=== PATIENT | male | born 1930 | race Caucasian/White ===

== ENCOUNTER 2018-10-29 16:06 | Emergency (ER) | payer OTHER ==
[~2018-10-29] VITALS: Ht 172.7 cm; Wt 86.2 kg
[~2018-10-29 16:06] MED LIST: ASCO500 PO; ASPI81EC; BAYER CHEWABLE81 MG PO; FURO40 PO; HYDCHL25 PO; HYDR1TAB94 PO; LOSARTAN POTASS25 MG PO; Norco 5-325 Ta1 EACH PO; OMEGA-3 KRILL1 EACH PO; POTCHL10ER PO; TAKES NO MEDS
[2018-10-29 16:26] LABS: Source, Urine Clean Catch
[2018-10-29 16:36] LABS: BASOPHILS ABSOLUTE AUTO 0.03 K/mm3 (0.00-0.23); BASOPHILS PERCENT AUTO 0 % (0-2); EOSINOPHILS ABSOLUTE AUTO 0.18 K/mm3 (0.00-0.68); EOSINOPHILS PERCENT AUTO 3 % (0-6); Hematocrit 36.8 % (37.0-53.0); Hemoglobin 11.9 g/dL (13.5-17.5); IMMATURE GRAN ABSOLUTE AUTO 0.02 K/mm3 (0.00-0.10); IMMATURE GRAN PERCENT AUTO 0 % (0-1); LYMPHOCYTES PERCENT AUTO 26 % (21-46); MONOCYTES ABSOLUTE AUTO 0.65 K/mm3 (0.16-1.47); MONOCYTES PERCENT AUTO 9 % (4-13); Mean Corpuscular HGB Conc 32.3 g/dL (31.5-36.5); Mean Corpuscular Volume 105 fL (80-100); NEUTROPHILS ABSOLUTE AUTO 4.24 K/mm3 (1.96-9.15); NEUTROPHILS PERCENT AUTO 61 % (41-73); Platelet Count 200 K/mm3 (150-400); RDW Coefficient Variation 12.2 % (11.7-14.2); White Blood Cell Count 6.92 K/mm3 (4.00-11.30)
[2018-10-29 16:58] LABS: Bilirubin, Urine Neg (Neg); Blood, Urine 5+ (Neg); Glucose Qualitative, Urine Neg (Neg); Ketones, Urine 1+ (Neg); Leukocyte Esterase, Urine 2+ (Neg); Nitrite, Urine Pos (Neg); Protein, Urine 3+ (Neg); Urobilinogen, Urine NORM (Normal)
[2018-10-29 17:16] LABS: Albumin, Blood 3.7 g/dL (3.4-5.0); Albumin/Globulin Ratio 0.9 (0.8-1.8); Bilirubin, Total 0.3 mg/dL (0.1-1.0); Bun/Creatinine Ratio 20.3 (12.0-20.0); Calcium, Blood 8.9 mg/dL (8.5-10.1); Creatinine, Blood 1.77 mg/dL (0.60-1.20); Globulin, Blood 3.9 g/dL (2.2-4.0); Potassium, Blood 3.9 mmol/L (3.5-5.5); Total Protein, Blood 7.6 g/dL (6.4-8.2)
[2018-10-29 17:19] LABS: Appearance, Urine Bloody (Clear); Color, Urine Red (P-Yellow)
[2018-10-29 17:21] LABS: Squamous Epithelial Cells Not Seen /hpf (Few)
[2018-10-29 17:23] LABS: Bacteria Few /hpf; Red Blood Cells, Urine TNTC /hpf (0-2); White Blood Cells, Urine 0-2 /hpf (0-5)
[2018-10-29] MEDS ORDERED: Bactrim Ds Tab1 EACH PO (18:39)
== END 2018-10-29 19:22 | disposition home or self-care (01) ==
LOC: ER 16:06
PROVIDERS: Physician Assistant
DX: N39.0 Urinary tract infection, site not specified (principal); Z88.0 Allergy status to penicillin; Z88.8 Allergy status to other drugs, medicaments and biological substances; Z79.899 Other long term (current) drug therapy; Z79.82 Long term (current) use of aspirin; I10 Essential (primary) hypertension; Z87.891 Personal history of nicotine dependence
CPT/HCPCS: 74177; 80053; 81001; 85025; 87086; 96365; 99284-25; J0696; Q9967

== ENCOUNTER 2019-04-10 18:16 | Observation (INO) | payer OTHER ==
[~2019-04-10] VITALS: Ht 165.1 cm; Wt 87.7 kg
[~2019-04-10 18:16] MED LIST changes: +Bactrim Ds Tab1 EACH PO; +LOSA25 PO; -LOSARTAN POTASS25 MG PO
[2019-04-10] MEDS ORDERED: Roxicodone5 MG PO (20:15)
--- NOTE | 2019-04-11 19:18 | NUR ---
PT. WORKED WITH PT TODAY AND TOLERATED WELL. TOOK HIM DOWN TO EXERCISE ROOM TO TRY HIM ON STAIRS. REPORTED HE DID WELL. PT. GIVEN TYLENOL FOR PAIN PER REQUEST. A&O PLEASANT AND COOPERATIVE, USING CALL LIGHT APPROPRIATELY.
--- NOTE | 2019-04-12 04:33 | NUR ---
SHIFT SUMMARY PT HAS SLEPT WELL T/O SHIFT. PT HAD NO ISSUES NOTED. PT CURRENTLY SLEEPING AND BREATHING EASY. CALL LIGHT IN REACH.
--- NOTE | 2019-04-12 08:05 | NUR ---
CLEANED PT'S SKIN TEAR ON RIGHT ELBOW AFTER HIS SHOWER AND PLACED A TEGADERM ON WOUND.
[2019-04-12] MEDS ORDERED: Norco 5-325 Ta1 EACH PO (14:21)
[2019-04-12] MEDS ORDERED: TRAM50 PO (14:24)
[2019-04-12] MEDS ORDERED: Acetaminophen325 M1 PO (14:25)
[2019-04-12] MEDS ORDERED: DOCU100 PO (14:26)
--- NOTE | 2019-04-12 16:00 | NUR ---
PT. DISCHARGED HOME WITH SPOUSE. HH TO FOLLOW HIM AN OUTPATIENT AND THEY WILL CALL HIM TOMORROW, PT. AWARE.
== END 2019-04-12 15:59 | disposition home or self-care (01) ==
LOC: ER 18:16 → MEDS 18:17
PROVIDERS: ADMIT Hospitalist
DX: S32.591A Other specified fracture of right pubis, initial encounter for closed fracture (principal); I12.9 Hypertensive chronic kidney disease with stage 1 through stage 4 chronic kidney disease, or unspecified chronic kidney disease; N18.3 Chronic kidney disease, stage 3 (moderate); E78.5 Hyperlipidemia, unspecified; Z87.891 Personal history of nicotine dependence; Z88.8 Allergy status to other drugs, medicaments and biological substances; Z88.0 Allergy status to penicillin; Z79.899 Other long term (current) drug therapy; Z79.82 Long term (current) use of aspirin; W10.9XXA Fall (on) (from) unspecified stairs and steps, initial encounter
CPT/HCPCS: 72170; 97116; 97161; 99285-25; A9270; A9270-GY; G0378

== ENCOUNTER → 2020-12-15 | Outpatient (CLI) | payer OTHER ==
[~2020-12-15] MED LIST changes: +Acetaminophen325 M1 PO; +DOCU100 PO; +Roxicodone5 MG PO; +TRAM50 PO
== END | disposition home or self-care (01) ==
LOC: LAB SHORT 15:00 → LAB 15:00
DX: R31.0 Gross hematuria (principal)
CPT/HCPCS: 87086

== ENCOUNTER 2022-01-14 16:49 | Emergency (ER) | payer OTHER ==
[~2022-01-14] VITALS: Ht 172.7 cm; Wt 89.8 kg
[2022-01-14 17:08] LABS: BASOPHILS ABSOLUTE AUTO 0.03 K/mm3 (0.00-0.23); BASOPHILS PERCENT AUTO 0 % (0-2); EOSINOPHILS ABSOLUTE AUTO 0.04 K/mm3 (0.00-0.68); EOSINOPHILS PERCENT AUTO 0 % (0-6); Hemoglobin 11.3 g/dL (13.5-17.5); IMMATURE GRAN ABSOLUTE AUTO 0.05 K/mm3 (0.00-0.10); IMMATURE GRAN PERCENT AUTO 1 % (0-1); LYMPHOCYTES ABSOLUTE AUTO 1.12 K/mm3 (0.84-5.20); LYMPHOCYTES PERCENT AUTO 11 % (21-46); MONOCYTES ABSOLUTE AUTO 0.59 K/mm3 (0.16-1.47); MONOCYTES PERCENT AUTO 6 % (4-13); Mean Corpuscular HGB 34.2 pg (26.0-34.0); Mean Corpuscular HGB Conc 33.2 g/dL (31.5-36.5); Mean Corpuscular Volume 103 fL (80-100); Mean Platelet Volume 10.6 fL (9.1-12.4); NEUTROPHILS PERCENT AUTO 82 % (41-73); Platelet Count 167 K/mm3 (150-400); RDW Coefficient Variation 12.1 % (11.7-14.2); RDW Standard Deviation 46.2 fL (35.1-46.3); White Blood Cell Count 10.33 K/mm3 (4.00-11.30)
[2022-01-14 17:34] LABS: Albumin, Blood 3.1 g/dL (3.4-5.0); Albumin/Globulin Ratio 0.7 (0.8-1.8); Bilirubin, Total 0.4 mg/dL (0.1-1.0); Bun/Creatinine Ratio 15.9 (12.0-20.0); Creatinine, Blood 2.77 mg/dL (0.60-1.20); Globulin, Blood 4.4 g/dL (2.2-4.0); Potassium, Blood 4.3 mmol/L (3.5-5.5); Total Protein, Blood 7.5 g/dL (6.4-8.2)
[2022-01-14 17:41] LABS: Source, Urine Clean Catch
[2022-01-14 17:45] LABS: Appearance, Urine Cloudy (Clear); Bilirubin, Urine Neg (Neg); Blood, Urine 5+ (Neg); Color, Urine Red (P-Yellow); Glucose Qualitative, Urine Neg (Neg); Ketones, Urine 1+ (Neg); Leukocyte Esterase, Urine 2+ (Neg); Nitrite, Urine Neg (Neg); Protein, Urine 4+ (Neg); Specific Gravity, Urine 1.015 (1.003-1.022); Urobilinogen, Urine NORM (Normal)
[2022-01-14 18:02] LABS: Red Blood Cells, Urine TNTC /hpf (0-2)
[2022-01-14 18:05] LABS: Bacteria Mod /hpf; Squamous Epithelial Cells Not Seen /hpf (Few)
[2022-01-14] MEDS ORDERED: CEFD300 PO (19:33)
== END 2022-01-14 20:18 | disposition home or self-care (01) ==
LOC: ER 16:49
PROVIDERS: Student in an Organized Health Care Education/Training Program
DX: N13.30 Unspecified hydronephrosis (principal); Z88.0 Allergy status to penicillin; Z79.899 Other long term (current) drug therapy; Z79.82 Long term (current) use of aspirin; I10 Essential (primary) hypertension; E78.5 Hyperlipidemia, unspecified; Z87.891 Personal history of nicotine dependence
CPT/HCPCS: 36415; 74176; 80053; 81001; 85025; 87086; 96374; 99284-25; J0696; J7030

== ENCOUNTER 2022-04-18 13:03 | Emergency (ER) | payer OTHER ==
[~2022-04-18] VITALS: Ht 172.7 cm; Wt 88.0 kg
[~2022-04-18 13:03] MED LIST changes: +CEFD300 PO
[2022-04-18 13:32] LABS: BASOPHILS ABSOLUTE AUTO 0.05 K/mm3 (0.00-0.23); BASOPHILS PERCENT AUTO 1 % (0-2); EOSINOPHILS ABSOLUTE AUTO 0.21 K/mm3 (0.00-0.68); EOSINOPHILS PERCENT AUTO 3 % (0-6); Hemoglobin 10.9 g/dL (13.5-17.5); IMMATURE GRAN ABSOLUTE AUTO 0.02 K/mm3 (0.00-0.10); IMMATURE GRAN PERCENT AUTO 0 % (0-1); LYMPHOCYTES ABSOLUTE AUTO 1.97 K/mm3 (0.84-5.20); LYMPHOCYTES PERCENT AUTO 29 % (21-46); MONOCYTES ABSOLUTE AUTO 0.55 K/mm3 (0.16-1.47); MONOCYTES PERCENT AUTO 8 % (4-13); Mean Corpuscular HGB 34.5 pg (26.0-34.0); Mean Corpuscular Volume 104 fL (80-100); Mean Platelet Volume 9.8 fL (9.1-12.4); NEUTROPHILS ABSOLUTE AUTO 3.98 K/mm3 (1.96-9.15); NEUTROPHILS PERCENT AUTO 59 % (41-73); Platelet Count 192 K/mm3 (150-400); RDW Coefficient Variation 12.1 % (11.7-14.2); RDW Standard Deviation 47.2 fL (35.1-46.3); Red Blood Cell Count 3.16 M/mm3 (4.30-5.90); White Blood Cell Count 6.78 K/mm3 (4.00-11.30)
[2022-04-18 13:33] LABS: Source, Urine Clean Catch
[2022-04-18 13:48] LABS: Appearance, Urine Hazy (Clear); Bilirubin, Urine Neg (Neg); Blood, Urine 5+ (Neg); Color, Urine Amber (P-Yellow); Glucose Qualitative, Urine Neg (Neg); Ketones, Urine Neg (Neg); Leukocyte Esterase, Urine 1+ (Neg); Nitrite, Urine Neg (Neg); Protein, Urine 2+ (Neg); Urobilinogen, Urine NORM (Normal); pH, Urine 6.5 (5.0-8.0)
[2022-04-18 14:05] LABS: Albumin, Blood 3.5 g/dL (3.4-5.0); Albumin/Globulin Ratio 0.9 (0.8-1.8); Bilirubin, Total 0.3 mg/dL (0.1-1.0); Bun/Creatinine Ratio 21.3 (12.0-20.0); Calcium, Blood 9.2 mg/dL (8.5-10.1); Creatinine, Blood 1.74 mg/dL (0.60-1.20); Globulin, Blood 3.8 g/dL (2.2-4.0); Potassium, Blood 4.2 mmol/L (3.5-5.5); Total Protein, Blood 7.3 g/dL (6.4-8.2)
[2022-04-18 14:23] LABS: Red Blood Cells, Urine 50-100 /hpf (0-2)
[2022-04-18 14:24] LABS: Bacteria Rare /hpf; Squamous Epithelial Cells Rare /hpf (Few)
[2022-04-18] MEDS ORDERED: FERSU300 PO (19:24)
[2022-04-18] MEDS ORDERED: AMLO5 PO (19:24)
[2022-04-18] MEDS ORDERED: POTA10T PO (19:25)
[2022-04-18] MEDS ORDERED: Norco 5-325 Ta1 EACH PO (21:38)
== END 2022-04-18 22:15 | disposition home or self-care (01) ==
LOC: ER 13:03
PROVIDERS: Emergency Medicine
DX: M54.31 Sciatica, right side (principal); N13.5 Crossing vessel and stricture of ureter without hydronephrosis; I12.9 Hypertensive chronic kidney disease with stage 1 through stage 4 chronic kidney disease, or unspecified chronic kidney disease; N18.9 Chronic kidney disease, unspecified; Z88.0 Allergy status to penicillin; Z88.8 Allergy status to other drugs, medicaments and biological substances; Z79.899 Other long term (current) drug therapy; Z79.82 Long term (current) use of aspirin; Z87.891 Personal history of nicotine dependence
CPT/HCPCS: 36415; 72131; 72192; 80053; 81001; 85025; A9270

== ENCOUNTER 2022-09-04 21:28 | Observation (INO) | payer OTHER ==
[~2022-09-04] VITALS: Ht 172.7 cm; Wt 85.2 kg
[~2022-09-04 21:28] MED LIST changes: +AMLO5 PO; +FERSU300 PO; +POTA10T PO
[2022-09-04 22:09] LABS: BASOPHILS ABSOLUTE AUTO 0.04 K/mm3 (0.00-0.23); BASOPHILS PERCENT AUTO 1 % (0-2); EOSINOPHILS ABSOLUTE AUTO 0.09 K/mm3 (0.00-0.68); EOSINOPHILS PERCENT AUTO 1 % (0-6); Hematocrit 33.5 % (37.0-53.0); IMMATURE GRAN ABSOLUTE AUTO 0.01 K/mm3 (0.00-0.10); IMMATURE GRAN PERCENT AUTO 0 % (0-1); LYMPHOCYTES ABSOLUTE AUTO 1.11 K/mm3 (0.84-5.20); LYMPHOCYTES PERCENT AUTO 17 % (21-46); MONOCYTES ABSOLUTE AUTO 0.68 K/mm3 (0.16-1.47); MONOCYTES PERCENT AUTO 11 % (4-13); Mean Corpuscular HGB Conc 32.8 g/dL (31.5-36.5); Mean Corpuscular Volume 101 fL (80-100); Mean Platelet Volume 10.2 fL (9.1-12.4); NEUTROPHILS ABSOLUTE AUTO 4.47 K/mm3 (1.96-9.15); NEUTROPHILS PERCENT AUTO 70 % (41-73); Platelet Count 180 K/mm3 (150-400); RDW Coefficient Variation 13.2 % (11.7-14.2); RDW Standard Deviation 48.3 fL (35.1-46.3); Red Blood Cell Count 3.33 M/mm3 (4.30-5.90)
[2022-09-04 22:42] LABS: Albumin, Blood 3.5 g/dL (3.4-5.0); Albumin/Globulin Ratio 0.9 (0.8-1.8); Bilirubin, Total 0.5 mg/dL (0.1-1.0); Bun/Creatinine Ratio 20.4 (12.0-20.0); Calcium, Blood 8.8 mg/dL (8.5-10.1); Creatinine, Blood 2.25 mg/dL (0.60-1.20); Globulin, Blood 3.9 g/dL (2.2-4.0); Potassium, Blood 3.9 mmol/L (3.5-5.5); Total Protein, Blood 7.4 g/dL (6.4-8.2)
[2022-09-05 06:26] LABS: Hemoglobin 9.2 g/dL (13.5-17.5)
[2022-09-05 06:32] LABS: Bun/Creatinine Ratio 21.9 (12.0-20.0); Calcium, Blood 8.2 mg/dL (8.5-10.1); Creatinine, Blood 1.92 mg/dL (0.60-1.20); Potassium, Blood 3.7 mmol/L (3.5-5.5)
[2022-09-05 07:39] LABS: Source, Urine Foley catheter
[2022-09-05 07:47] LABS: Appearance, Urine Hazy (Clear); Bilirubin, Urine Neg (Neg); Blood, Urine 5+ (Neg); Color, Urine Red (P-Yellow); Glucose Qualitative, Urine Neg (Neg); Ketones, Urine Neg (Neg); Leukocyte Esterase, Urine Neg (Neg); Nitrite, Urine Neg (Neg); Protein, Urine 2+ (Neg); Specific Gravity, Urine 1.015 (1.003-1.022); Urobilinogen, Urine NORM (Normal)
[2022-09-05 08:17] LABS: Bacteria Not Seen /hpf; Red Blood Cells, Urine TNTC /hpf (0-2); Squamous Epithelial Cells Not Seen /hpf (Few); White Blood Cells, Urine Not Seen /hpf (0-5)
--- NOTE | 2022-09-05 16:34 | NUR ---
ADMISSION SUMMARY: RECEIVED REPORT FROM ER NURSE GRECIA AROUND 1208, REGARDING PATIENT ADMITTED TO MEDICAL UNIT WITH DIAGNOSIS OF HEMATURIA. PATIENT ARRIVED TO ROOM AT AROUND 1330. PATIENT WAS TRANSFERRED TO BED WITH SBA. PATIENT A&OX4. ORIENT TO ROOM AND CALL SYSTEM. PLEASANT AND COOPERATIVE WITH CARE USES CALL LIGHT APPROPRIATELY AND ABLE TO ADVOCATE FOR HIS NEEDS. DENIES CP/CHEST DISCOMFORT. LUNGS CLEAR T/O TO AUSCULTATION. WEARS HEARING AID ON BOTH EARS. DENIES SUPRAPUBIC PAIN/DISCOMFORT. THREE WAY RAMIREZ WAS PLACED IN ED FOR RETENTION AND BLOOD IN URINE. BLADDER IRREGATION WAS STOP AT AROUND 1540 PER ORDER. RAMIREZ PATENT DRAINING TO GRAVITY WITH RED URINE BUT NO CLOTS. IV TO R FOREARM SALINE LOCKED. AT BEDSIDE VISITING THIS PM. ALL QUESTIONS OR CONCERN WERE ANSWERED DURING THIS VISIT. SPOUSE DORETHA STATED UNDERSTANDING AND NO FURTHER QUESTIONS AT THIS TIME. VITAL SIGNS REVIEWED. CALL LIGHT AND ICE WATER WITHIN REACH.
--- NOTE | 2022-09-06 05:16 | NUR ---
ANESTHESIA DIRECTOR SUMMARY PT A/OX4; PLEASANT AND COOPERATIVE. PT WITH HEMATURIA AND INDWELLING CATHETER W/IRRIGATION. IRRIGATION CLAMPED W/ORDER TO REMOVE CATH IF NO CLOTS AND URINE REMAINS PINK. REQUESTED CHARGE (TEE RIVERA) T/REVIEW ORDER AND ASSESS PT F/REMOVAL. CHARGE GAVE OK TO REMOVE. URINE SEROSENGUENOUS W/NO CLOTS WHEN REMOVED. AFTER REMOVAL PT HAD SMALL VOID WITH BRIEF DISCOMFORT AND THEN NO PAIN. PT OBSERVED SMALL CLOT IN URINE. ADVISED PT TO LET NURSE KNOW WHEN HE VOIDS T/OBSERVE FOR CLOTS; ALSO REPORT ANY PAIN. PT SHOWERED EARLY THIS AM. ABLE TO MAKE NEEDS KNOW. CALL LIGHT IN REACH.
[2022-09-06 06:05] LABS: BASOPHILS ABSOLUTE AUTO 0.02 K/mm3 (0.00-0.23); BASOPHILS PERCENT AUTO 0 % (0-2); EOSINOPHILS ABSOLUTE AUTO 0.28 K/mm3 (0.00-0.68); EOSINOPHILS PERCENT AUTO 4 % (0-6); Hemoglobin 10.9 g/dL (13.5-17.5); IMMATURE GRAN ABSOLUTE AUTO 0.02 K/mm3 (0.00-0.10); IMMATURE GRAN PERCENT AUTO 0 % (0-1); LYMPHOCYTES ABSOLUTE AUTO 1.86 K/mm3 (0.84-5.20); LYMPHOCYTES PERCENT AUTO 30 % (21-46); MONOCYTES ABSOLUTE AUTO 0.66 K/mm3 (0.16-1.47); MONOCYTES PERCENT AUTO 11 % (4-13); Mean Corpuscular HGB 33.4 pg (26.0-34.0); Mean Corpuscular Volume 101 fL (80-100); Mean Platelet Volume 10.4 fL (9.1-12.4); NEUTROPHILS ABSOLUTE AUTO 3.47 K/mm3 (1.96-9.15); NEUTROPHILS PERCENT AUTO 55 % (41-73); Platelet Count 175 K/mm3 (150-400); RDW Coefficient Variation 13.2 % (11.7-14.2); RDW Standard Deviation 49.1 fL (35.1-46.3); Red Blood Cell Count 3.26 M/mm3 (4.30-5.90); White Blood Cell Count 6.31 K/mm3 (4.00-11.30)
[2022-09-06 06:31] LABS: Albumin, Blood 3.3 g/dL (3.4-5.0); Anion Gap 8 mmol/L (6-16); Blood Urea Nitrogen 39 mg/dL (8-24); Bun/Creatinine Ratio 19.3 (12.0-20.0); CO2, Blood 22 mmol/L (21-32); Calcium, Blood 8.9 mg/dL (8.5-10.1); Chloride, Blood 109 mmol/L (98-108); Creatinine, Blood 2.02 mg/dL (0.60-1.20); Glomerular Filtration Rate 31 (60-); Glucose, Blood 118 mg/dL (70-99); Phosphorus, Blood 3.2 mg/dL (2.5-4.9); Potassium, Blood 3.7 mmol/L (3.5-5.5); Sodium, Blood 139 mmol/L (136-145)
[2022-09-06] MEDS ORDERED: B12-FOLIC ACID1 EACH PO (15:47)
[2022-09-06] MEDS ORDERED: VITAMIN B122500 MC1 PO (15:49)
[2022-09-06] MEDS ORDERED: DERMACINRX FOL1 EAC2 PO (15:50)
--- NOTE | 2022-09-06 18:49 | NUR ---
SHIFT SUMMARY: PATIENT A&OX4. PLEASANT AND COOPERATIVE WITH CARE. USES CALL LIGHT APPROPRIATELY AND ABLE TO ADVOCATE FOR HIS NEEDS. PATIENT DENIES SUPRAPUBIC PAIN/TENDERNESS THIS SHIFT. THIS AM PATIENT URINATING WITH BIG CLOTS COMING OUT. THE DAY PROGRESS CLOTS FROM URINE WAS GETTING SMALLER. AROUND 1400 THIS RN NOTICE PATIENT URINE IS MORE PINKISH COLOR WITH NO CLOTS. PLAN IS TO D/C PATIENT TOMORROW IF NO EVENTS OVERNIGHT. VITAL SIGNS REVIEWED. CALL LIGHT IN REACH.
[2022-09-07 05:21] LABS: BASOPHILS ABSOLUTE AUTO 0.04 K/mm3 (0.00-0.23); BASOPHILS PERCENT AUTO 1 % (0-2); EOSINOPHILS ABSOLUTE AUTO 0.36 K/mm3 (0.00-0.68); EOSINOPHILS PERCENT AUTO 7 % (0-6); Hematocrit 27.2 % (37.0-53.0); Hemoglobin 9.1 g/dL (13.5-17.5); IMMATURE GRAN ABSOLUTE AUTO 0.02 K/mm3 (0.00-0.10); IMMATURE GRAN PERCENT AUTO 0 % (0-1); LYMPHOCYTES ABSOLUTE AUTO 1.48 K/mm3 (0.84-5.20); LYMPHOCYTES PERCENT AUTO 30 % (21-46); MONOCYTES PERCENT AUTO 12 % (4-13); Mean Corpuscular HGB 33.6 pg (26.0-34.0); Mean Corpuscular HGB Conc 33.5 g/dL (31.5-36.5); Mean Corpuscular Volume 100 fL (80-100); Mean Platelet Volume 10.4 fL (9.1-12.4); NEUTROPHILS ABSOLUTE AUTO 2.51 K/mm3 (1.96-9.15); NEUTROPHILS PERCENT AUTO 50 % (41-73); Platelet Count 140 K/mm3 (150-400); RDW Coefficient Variation 13.2 % (11.7-14.2); RDW Standard Deviation 48.4 fL (35.1-46.3); Red Blood Cell Count 2.71 M/mm3 (4.30-5.90); White Blood Cell Count 5.01 K/mm3 (4.00-11.30)
--- NOTE | 2022-09-07 05:50 | NUR ---
VALVE TECHNICIAN SUMMARY PT RESTED WELL T/O THE NIGHT. A/OX4. INDEPENDENT IN THE ROOM. PT HAS CONTINUED T/REPORT NO PAIN WITH URINATION. URINE IS RED; NO CLOTS OBSERVED. MORNING LABS SHOW A DROP IN HGB 9.1 DOWN FROM 10.9; RBC LOW AT 2.71. PLATELETS LOW; 140. REVIEWED VITAL SIGNS. ON TELE; SINUS WEI IN DANYELLE 50'S. PT ABLE TO ADVOCATE FOR NEEDS. CALL LIGHT IN REACH. BED LOCKED/LOW.
[2022-09-07 06:03] LABS: Albumin, Blood 2.7 g/dL (3.4-5.0); Anion Gap 5 mmol/L (6-16); Blood Urea Nitrogen 43 mg/dL (8-24); Bun/Creatinine Ratio 19.1 (12.0-20.0); CO2, Blood 25 mmol/L (21-32); Calcium, Blood 8.5 mg/dL (8.5-10.1); Chloride, Blood 111 mmol/L (98-108); Creatinine, Blood 2.25 mg/dL (0.60-1.20); Glomerular Filtration Rate 27 (60-); Glucose, Blood 106 mg/dL (70-99); Phosphorus, Blood 3.7 mg/dL (2.5-4.9); Potassium, Blood 3.9 mmol/L (3.5-5.5); Sodium, Blood 141 mmol/L (136-145)
[2022-09-07] MEDS ORDERED: DOCU100 PO (10:16)
--- NOTE | 2022-09-07 13:33 | NUR ---
DISCHARGE NOTE- PT WAS GIVEN VERBAL AND WRITTEN DISCHARGE INSTRUCTIONS AND ACKNOWLEDGED UNDERSTANDING OF THEM. SPOUSE CAME TO PICK THE PT UP. SHE WAS ALSO GIVEN THE DC FOLLOW UP INSTRUCTIONS. PT WAS ESCORTED OUT VIA WC, IV AND TELE DC'D PRIOR TO DISCHARGE. NO S&S OF DISTRESS NOTED AT THE TIME OF DISCHARGE
== END 2022-09-07 14:15 | disposition home or self-care (01) ==
LOC: ER 21:28 → MEDS 09-05 00:35 → ER 09-05 00:35 → MEDS 09-05 13:30
PROVIDERS: Internal Medicine; Student in an Organized Health Care Education/Training Program; ADMIT Internal Medicine
DX: C67.9 Malignant neoplasm of bladder, unspecified (principal); R33.9 Retention of urine, unspecified; R31.9 Hematuria, unspecified; I12.9 Hypertensive chronic kidney disease with stage 1 through stage 4 chronic kidney disease, or unspecified chronic kidney disease; N18.9 Chronic kidney disease, unspecified; N17.9 Acute kidney failure, unspecified; D64.9 Anemia, unspecified; E78.5 Hyperlipidemia, unspecified; Z87.891 Personal history of nicotine dependence; R00.1 Bradycardia, unspecified
CPT/HCPCS: 36415; 51798; 80048; 80053; 80069; 81001; 84443; 85014; 85018; 85025; 93005; 93010; A9270; G0378; J7030

== ENCOUNTER 2022-10-27 11:11 | Inpatient (IN) | payer OTHER ==
[~2022-10-27] VITALS: Ht 172.7 cm; Wt 83.6 kg
[~2022-10-27 11:11] MED LIST changes: +B12-FOLIC ACID1 EACH PO; +DERMACINRX FOL1 EAC2 PO; +VITAMIN B122500 MC1 PO
[2022-10-27 11:27] LABS: Source, Urine Clean Catch
[2022-10-27 11:37] LABS: Bilirubin, Urine Neg (Neg); Blood, Urine 4+ (Neg); Color, Urine Red (P-Yellow); Glucose Qualitative, Urine Neg (Neg); Ketones, Urine 1+ (Neg); Leukocyte Esterase, Urine Neg (Neg); Nitrite, Urine Neg (Neg); Urobilinogen, Urine NORM (Normal)
[2022-10-27 11:49] LABS: Appearance, Urine Bloody (Clear); Protein, Urine 3+ (Neg); Specific Gravity, Urine 1.015 (1.003-1.022)
[2022-10-27 11:51] LABS: BASOPHILS ABSOLUTE AUTO 0.04 K/mm3 (0.00-0.23); BASOPHILS PERCENT AUTO 1 % (0-2); EOSINOPHILS PERCENT AUTO 3 % (0-6); Hematocrit 31.2 % (37.0-53.0); Hemoglobin 10.3 g/dL (13.5-17.5); IMMATURE GRAN ABSOLUTE AUTO 0.03 K/mm3 (0.00-0.10); IMMATURE GRAN PERCENT AUTO 1 % (0-1); LYMPHOCYTES ABSOLUTE AUTO 1.56 K/mm3 (0.84-5.20); LYMPHOCYTES PERCENT AUTO 24 % (21-46); MONOCYTES ABSOLUTE AUTO 0.56 K/mm3 (0.16-1.47); MONOCYTES PERCENT AUTO 9 % (4-13); Mean Corpuscular HGB 33.8 pg (26.0-34.0); Mean Corpuscular Volume 102 fL (80-100); NEUTROPHILS ABSOLUTE AUTO 4.06 K/mm3 (1.96-9.15); NEUTROPHILS PERCENT AUTO 63 % (41-73); Platelet Count 171 K/mm3 (150-400); RDW Coefficient Variation 13.6 % (11.7-14.2); RDW Standard Deviation 52.4 fL (35.1-46.3); Red Blood Cell Count 3.05 M/mm3 (4.30-5.90); White Blood Cell Count 6.45 K/mm3 (4.00-11.30)
[2022-10-27 12:03] LABS: Bacteria Not Seen /hpf; Red Blood Cells, Urine TNTC /hpf (0-2); Squamous Epithelial Cells Not Seen /hpf (Few); White Blood Cells, Urine 0-2 /hpf (0-5)
[2022-10-27 12:09] LABS: Albumin, Blood 3.3 g/dL (3.4-5.0); Albumin/Globulin Ratio 0.9 (0.8-1.8); Bilirubin, Total 0.4 mg/dL (0.1-1.0); Bun/Creatinine Ratio 30.1 (12.0-20.0); Calcium, Blood 9.1 mg/dL (8.5-10.1); Creatinine, Blood 1.96 mg/dL (0.60-1.20); Globulin, Blood 3.8 g/dL (2.2-4.0); Potassium, Blood 4.1 mmol/L (3.5-5.5); Total Protein, Blood 7.1 g/dL (6.4-8.2)
[2022-10-27 18:47] LABS: Hematocrit 28.5 % (37.0-53.0); Hemoglobin 9.4 g/dL (13.5-17.5)
[2022-10-27] MEDS ORDERED: VITAMIN D5000 UNIT PO (20:55)
[2022-10-28 05:04] LABS: BASOPHILS ABSOLUTE AUTO 0.03 K/mm3 (0.00-0.23); BASOPHILS PERCENT AUTO 0 % (0-2); EOSINOPHILS PERCENT AUTO 4 % (0-6); Hematocrit 25.3 % (37.0-53.0); Hemoglobin 8.3 g/dL (13.5-17.5); IMMATURE GRAN ABSOLUTE AUTO 0.03 K/mm3 (0.00-0.10); IMMATURE GRAN PERCENT AUTO 0 % (0-1); LYMPHOCYTES ABSOLUTE AUTO 1.22 K/mm3 (0.84-5.20); LYMPHOCYTES PERCENT AUTO 18 % (21-46); MONOCYTES ABSOLUTE AUTO 0.58 K/mm3 (0.16-1.47); MONOCYTES PERCENT AUTO 9 % (4-13); Mean Corpuscular HGB 33.5 pg (26.0-34.0); Mean Corpuscular HGB Conc 32.8 g/dL (31.5-36.5); Mean Corpuscular Volume 102 fL (80-100); Mean Platelet Volume 10.1 fL (9.1-12.4); NEUTROPHILS PERCENT AUTO 69 % (41-73); Platelet Count 145 K/mm3 (150-400); RDW Coefficient Variation 13.7 % (11.7-14.2); Red Blood Cell Count 2.48 M/mm3 (4.30-5.90); White Blood Cell Count 6.86 K/mm3 (4.00-11.30)
[2022-10-28 05:22] LABS: Bun/Creatinine Ratio 26.2 (12.0-20.0); Calcium, Blood 8.4 mg/dL (8.5-10.1); Creatinine, Blood 1.72 mg/dL (0.60-1.20)
--- NOTE | 2022-10-28 05:29 | NUR ---
PT IS A&O4, SB TO THE BSC CBI DRAINING DARK RED CONTINUOUS IRRIGATION, VSS, PRN PAIN MED GIVEN PER MAR, NO ACUTE EVENTS THIS SHIFT, CONTINUE POC
[2022-10-28] MEDS ORDERED: AMLO5 PO (11:27)
--- NOTE | 2022-10-28 18:16 | NUR ---
SHIFT SUMARY- PT AAOX4. X1 ASSIST. PT DID HAVE A LARGE CLOT EARLY THIS EVENING THAT THIS RN TRIED TO IRRIGATE AND EVENTUALLY IT WAS REMOVED FROM THE CATHETER. PT WAS IN SEVERE PAIN PRIOR TO CLOT REMOVAL. NO OTHER ISSUES THIS SHIFT.
--- NOTE | 2022-10-28 18:53 | NUR ---
CBI- 9,000 ML IN THIS SHIFT AND 10,600 OUT THIS SHIFT.
[2022-10-29 04:37] LABS: Hematocrit 24.6 % (37.0-53.0); Hemoglobin 8.1 g/dL (13.5-17.5); Mean Corpuscular HGB 34.5 pg (26.0-34.0); Mean Corpuscular HGB Conc 32.9 g/dL (31.5-36.5); Mean Corpuscular Volume 105 fL (80-100); Platelet Count 135 K/mm3 (150-400); RDW Coefficient Variation 13.7 % (11.7-14.2); RDW Standard Deviation 52.8 fL (35.1-46.3); Red Blood Cell Count 2.35 M/mm3 (4.30-5.90); White Blood Cell Count 6.67 K/mm3 (4.00-11.30)
[2022-10-29 05:08] LABS: Albumin, Blood 2.5 g/dL (3.4-5.0); Anion Gap 5 mmol/L (6-16); Blood Urea Nitrogen 41 mg/dL (8-24); Bun/Creatinine Ratio 23.3 (12.0-20.0); CO2, Blood 24 mmol/L (21-32); Calcium, Blood 8.3 mg/dL (8.5-10.1); Chloride, Blood 112 mmol/L (98-108); Creatinine, Blood 1.76 mg/dL (0.60-1.20); Glomerular Filtration Rate 37 (60-); Glucose, Blood 110 mg/dL (70-99); Sodium, Blood 141 mmol/L (136-145)
--- NOTE | 2022-10-29 05:27 | NUR ---
PT IS A&04, UP WITH 1 TO BSC, CBI TO CONTINUOS IRRIGATION DRAINING LIGHT RED FLUID NO CLOTS OVERNIGHT PT TOLERATING WELL, VSS, NO COMPLAINTS OF PAIN OR ACUTE EVENTS THIS SHIFT, CONTINUE POC
--- NOTE | 2022-10-29 18:09 | NUR ---
SHIFT SUMMARY A&0X4, COOPERATIVE WITH CARE. NO COMPLAINTS OF PAIN DURING SHIFT. PT STILL HAS CBI GOING. URINE COLOR DID NOT IMPROVE T/O SHIFT - CONTINUES TO BE A CLEAR RED COLOR. FLUSHED CATHETER MID SHIFT DUE TO A CLOT. NO PROBLEMS AFTER THE FLUSH. OUTPUT RECORDED. LBM YESTERDAY MORNING, MIRLAX GIVEN TODAY. DENIES ANY CP, SOB, OR DIZZINESS. NO ACUTE CHANGES NOTED DURING THIS SHIFT. PATIENT CURRENTLY RESTING COMFORTABLY IN BED, CALL LIGHT WITHIN REACH.
[2022-10-30 04:58] LABS: Hematocrit 23.3 % (37.0-53.0); Hemoglobin 7.6 g/dL (13.5-17.5); Mean Corpuscular HGB 33.5 pg (26.0-34.0); Mean Corpuscular HGB Conc 32.6 g/dL (31.5-36.5); Mean Corpuscular Volume 103 fL (80-100); Mean Platelet Volume 10.2 fL (9.1-12.4); Platelet Count 140 K/mm3 (150-400); RDW Coefficient Variation 13.7 % (11.7-14.2); Red Blood Cell Count 2.27 M/mm3 (4.30-5.90); White Blood Cell Count 6.25 K/mm3 (4.00-11.30)
[2022-10-30 05:25] LABS: Albumin, Blood 2.5 g/dL (3.4-5.0); Anion Gap 3 mmol/L (6-16); Blood Urea Nitrogen 42 mg/dL (8-24); CO2, Blood 26 mmol/L (21-32); Calcium, Blood 8.4 mg/dL (8.5-10.1); Chloride, Blood 112 mmol/L (98-108); Glomerular Filtration Rate 31 (60-); Glucose, Blood 100 mg/dL (70-99); Phosphorus, Blood 3.3 mg/dL (2.5-4.9); Sodium, Blood 141 mmol/L (136-145)
--- NOTE | 2022-10-30 06:19 | NUR ---
PT IS A&O4, UP WITH 1 TO BSC, NO BM OVERNIGHT, CBI DRAINING RED TINGED FLUID NO CHANGE IN CONSISTENCY THIS SHIFT OR BLOOD CLOTS, ON RA, VSS, NO COMPLIANTS OF PAIN OR DISCOMFORT THIS SHIFT OR ACUTE OVERNIGHT EVENTS CONTINUE POC
--- NOTE | 2022-10-30 17:46 | NUR ---
SHIFT SUMMARY A&0X4, COOPERATIVE WITH CARE. PT WENT FOR A SHORT WALK TODAY WITH THE PHARMACY CLERK, TOLERATED WELL. DENIED ANY PAIN OR CHEST PRESSURE DURING THIS SHIFT. LBM THIS AFTERNOON, SMALL AND HARD. EVERY TIME PT ATTEMPTS A BM, URINE LEAKK OUT AROUND CATHETER INSERTION SITE. URINE CONTINUES TO BE DARK RED. HAD TO MANUALLY IRRIGATE CATHETER TWICE DUE TO CLOTS. APPETITE AND HYDRATION NOTED TO BE ADEQUATE. NO ACUTE CHANGES DURING THIS SHIFT. DR LARA STATED IF HEMOGLOBIN IS BELOW 7, UROLOGIST DR ROUSSEAU WILL BE NOTIFIED FOR FURTHER TREATMENT. PATIENT CURRENTLY RESTING IN BED, PRESENT, CALL LIGHT WITHIN REACH.
--- NOTE | 2022-10-30 18:30 | NUR ---
BLADDER IRRIGATION AFTER SECOND ATTEMPT TO MANUALLY FLUSH CATHETER, THERE WAS NO FLUID RETURN FROM THE CATHETER. PATIENT DOES NOT CURRENTLY HAVE BLADDER DISCOMFORT. PT WILL NEED A NEW 3 LUMEN 2OF 30ML CATHETER PLACED. REPORTED TO CHARGE AND PIER HAND RN.
--- NOTE | 2022-10-31 04:44 | NUR ---
PT IS A&O4, UP WITH 1 TO THE BSC, PT HAD ONE EPISODE OF PAIN AND PRESSURE THAT RESULTED IN HAVING TO HAND IRRIGATE THE CBI, MANY CLOTS WERE REMOVED WITH IRRIGATION, RAMIREZ STILL DRAINING DARK RED FLUID, NO THER COMPLAINTS OF PAIN, VSS, CONTINUE POC
[2022-10-31 05:04] LABS: Hematocrit 20.6 % (37.0-53.0); Hemoglobin 6.7 g/dL (13.5-17.5); Mean Corpuscular HGB 33.2 pg (26.0-34.0); Mean Corpuscular HGB Conc 32.5 g/dL (31.5-36.5); Mean Corpuscular Volume 102 fL (80-100); Mean Platelet Volume 10.7 fL (9.1-12.4); Platelet Count 148 K/mm3 (150-400); RDW Coefficient Variation 13.7 % (11.7-14.2); RDW Standard Deviation 51.1 fL (35.1-46.3); Red Blood Cell Count 2.02 M/mm3 (4.30-5.90); White Blood Cell Count 7.04 K/mm3 (4.00-11.30)
[2022-10-31 05:34] LABS: Albumin, Blood 2.5 g/dL (3.4-5.0); Anion Gap 7 mmol/L (6-16); Blood Urea Nitrogen 40 mg/dL (8-24); Bun/Creatinine Ratio 20.1 (12.0-20.0); CO2, Blood 24 mmol/L (21-32); Calcium, Blood 8.3 mg/dL (8.5-10.1); Chloride, Blood 112 mmol/L (98-108); Creatinine, Blood 1.99 mg/dL (0.60-1.20); Glomerular Filtration Rate 32 (60-); Glucose, Blood 108 mg/dL (70-99); Phosphorus, Blood 3.6 mg/dL (2.5-4.9); Potassium, Blood 4.1 mmol/L (3.5-5.5); Sodium, Blood 143 mmol/L (136-145)
[2022-10-31 17:58] LABS: Hematocrit 26.9 % (37.0-53.0); Hemoglobin 9.1 g/dL (13.5-17.5)
--- NOTE | 2022-10-31 18:00 | NUR ---
SHIFT SUMMARY-PT AAOX THIS SHIFT. MULTIPLE SMALL/MED CLOTS PASSED THIS SHIFT-SOME WITH IRRIGATION SOME WITHOUT. HGB INCREASED TO 9.1 TONIGHT FROM 6.7. PT EDUCATED ABOUT PALLIATIVE/HOSPICE CARE.
--- NOTE | 2022-11-01 05:44 | NUR ---
A/OX4; CALM AND COOPERATIVE. SBA, STEADY GAIT. CBI RAMIREZ IN PLACE; REQUIRED FREQUENT HAND IRRIGATION SEVERAL TIMES THIS SHIFT D/T MANY VARIABLE SIZED CLOTS. LEAKING AT INSERTION SITE AND PAIN DURING CLOTTING EPISODES. CONTINUOUS IRRIGATION RUNNING BRISKLY T/O SHIFT. OUTPUT COLOR A[place]STA RED (LIKE A COUGH DROP). SLEEP PROMOTED. CALL LIGHT IN REACH; ENCOURAGED TO MAKE NEEDS KNOWN. BED ALARM SET.
[2022-11-01 06:18] LABS: Hematocrit 24.3 % (37.0-53.0); Hemoglobin 8.2 g/dL (13.5-17.5); Mean Corpuscular HGB 32.7 pg (26.0-34.0); Mean Corpuscular HGB Conc 33.7 g/dL (31.5-36.5); Mean Platelet Volume 10.6 fL (9.1-12.4); Platelet Count 143 K/mm3 (150-400); RDW Coefficient Variation 16.9 % (11.7-14.2); Red Blood Cell Count 2.51 M/mm3 (4.30-5.90); White Blood Cell Count 6.87 K/mm3 (4.00-11.30)
[2022-11-01 06:27] LABS: Mean Corpuscular Volume 97 fL (80-100)
[2022-11-01 06:35] LABS: Albumin, Blood 2.6 g/dL (3.4-5.0); Anion Gap 4 mmol/L (6-16); Blood Urea Nitrogen 46 mg/dL (8-24); Bun/Creatinine Ratio 23.4 (12.0-20.0); CO2, Blood 25 mmol/L (21-32); Calcium, Blood 8.6 mg/dL (8.5-10.1); Chloride, Blood 109 mmol/L (98-108); Creatinine, Blood 1.97 mg/dL (0.60-1.20); Glomerular Filtration Rate 32 (60-); Glucose, Blood 115 mg/dL (70-99); Phosphorus, Blood 3.1 mg/dL (2.5-4.9); Potassium, Blood 3.9 mmol/L (3.5-5.5); Sodium, Blood 138 mmol/L (136-145)
--- NOTE | 2022-11-01 13:25 | NUR ---
VISIT and case conferenced with pt's RN, report to Dr after visit. - Met with pt and his esau at the bedside. We reviewed his goals of care, which appear realistic and consistent with his previous conversations with his Drs and nurses since admission. He is hopeful for a transfer to [facility] for intervention with Dr Sidhu that may improve his s/s and quality of life. I also reviewed his wishes for rescusitative efforts. He is clear that if he was unable to sustain life due to respiratory or cardiac insufficiency that he would not want CPR or intubation and would want to be kept comfortable. He also reiterated that he has no interest in dialysis if his kidneys failed. We reviewed hospice services and philosophy. He understands that Hospice would be an option if he decides no further procedures, transfusions, hospitalizations are desired for the tx of his bladder cancer. Report on my visit provided to pt's nurses and Dr by phone to request change in code status to DNR per pt's wishes.
--- NOTE | 2022-11-01 18:34 | NUR ---
PT AAOX4 THIS SHIFT. X1 ASSIST TO BATHROOM. PT'S CATHETER WAS IRRIGATED X1 THIS SHIFT. NO LARGE CLOTS PASSED THIS SHIFT-ONLY SMALL CLOTS. PT DOES HAVE INCREASING ANXIETY REGARDING HIS CATHETER AND IT'S FLOW. PT INCREASED THE CBI FLOW WHEN RN/GORE MAKER WAS NOT PRESENT IN THE ROOM. RN ASKED PT TO PLEASE NOT TOUCH HIS CBI AND TO CALL IF HE NEEDS HELP. MD HUFF GAVE VERBAL TO CLAMP CBI AT 0300 ON 11/02/22 FOR 5 HOURS IF PT DOES NOT PASS ANY LARGE CLOTS THIS EVENING. CBI TO BE CLAMPED FOR 5 HOURS. IF PT TOLERATES-RN TO REMOVE CATHETER.
--- NOTE | 2022-11-01 18:48 | NUR ---
CATHETER CARE PERFORMED.
[2022-11-02 05:06] LABS: Hematocrit 20.9 % (37.0-53.0); Hemoglobin 7.1 g/dL (13.5-17.5)
[2022-11-02 05:31] LABS: Albumin, Blood 2.5 g/dL (3.4-5.0); Anion Gap 5 mmol/L (6-16); Blood Urea Nitrogen 45 mg/dL (8-24); Bun/Creatinine Ratio 20.2 (12.0-20.0); CO2, Blood 25 mmol/L (21-32); Calcium, Blood 8.2 mg/dL (8.5-10.1); Chloride, Blood 110 mmol/L (98-108); Creatinine, Blood 2.23 mg/dL (0.60-1.20); Glomerular Filtration Rate 27 (60-); Glucose, Blood 105 mg/dL (70-99); Phosphorus, Blood 3.5 mg/dL (2.5-4.9); Potassium, Blood 3.6 mmol/L (3.5-5.5); Sodium, Blood 140 mmol/L (136-145)
--- NOTE | 2022-11-02 09:00 | NUR ---
PT PLEASANT COOP A/O X3 VERY TALKATIVE. STATES GOAL IS FOR QUALITY OF LIFE NOT QUANTITY. WANTS TO GO GOLFING. H/R IRREG, MURMUR NOTED. NO TELE. LUNGS CLEAR, RESP EASY, UNLABORED. ON R A. BT X4 ABD SOFT. LAST BM YEST. VOIDS RAMIREZ CATH. DARK RED FLUID NOTED. VISUALIZED THIS AM.BLADDER IRRIGATION STOPPED 4 AM. DENIES PAIN. BED IN LOW POSITION, CALL LITE IN REACH, CALLS APPROP
[2022-11-02 10:23] LABS: Hematocrit 24.4 % (37.0-53.0)
--- NOTE | 2022-11-02 12:57 | NUR ---
PT CONTINUING TO HAVE DARK RED URINE IN RAMIREZ BAG. NOW ABOUT 400 IN BAG. PT DENIES DISCOMFORT. BED IN LOW POSITION, CALL LITE IN REACH, CALLS APPROP
--- NOTE | 2022-11-02 15:00 | NUR ---
Pal Care f/u visit made at pt's request while our volunteer was visiting him and his . Pt and wanted additional information on hopice services and care and to discuss pt's evolving goals of care and wishes. Time spent listening as pt discussed his thoughts and how during this hospital stay and with many conversations with his and children, he is most interested in remaining at home and having hospice support "to help him through this next phase". He said it's been a difficult realization that this is where he is at now. He would like to follow up with his cardiologists who will be evaluating his pacer function in [place] on 11/07, hoping that if there is some adjustment or replacement of wires/pacer that his quality of life would be improved for his remaining time. He does not want to return to the hospital. His as opened a LTC policy claim and is working with the LTC insurance reps to obtain more comprehensive help at home. Nicole states she has two neighbors who can assist her with a transfer from hospital bed to wheelchair for the appointment on Saturday. I provided her with a list of local in-home CG agencies to research availability and schedule evals when possible. I called pt's OP Pal Care nurse with [facility] to provide an update on current status and plans. She will f/u with them after discharge for a home visit and assist with transition to hospice services once pt has spoken with Kathy and decision is made to proceed. I discussed three available hospice agencies with pt/ and they would like [facility] as they are happy with their current [facility] services. Prior to this admission, pt was able to ambulate and navigate the three steps into his home. He does not currently feel strong enough to stand and pivot transfer, even with SBA or Nicole's assist. Nicole states a neighbor has offered to build a ramp into the home and she will contact him to do that. Pt expressed that he felt good about the plan we discussed t/o his visit. He reports pain at this time and his RN had been notified and was bringing tylenol per eMAR, per pt. Pt and demonstrate great care and affection with one another and are able to smile and tease each other despite the gravity of the conversation. Pt is looking forward to being home and spending time with his family and friends as much as possible. Pt's air conditioning manager and RN updated on all of the above also.
--- NOTE | 2022-11-02 18:24 | NUR ---
PT QUITE PLEASANT TODAY, HAD FAMILY IN TO VISIT TODAY. THE SALINE FLUSH WAS TURNED OFF AT 4AM THIS AM, PRIOR SHIFT. IT HAS BEEN OFF ALL DAY. PT URINE FLOW IS MINIMALLY DIRECTOR HOME HEALTH THIS AFTERNOON THAN AT 7 AM THIS DAY. IT IS STILL DARK RED/BROWN COLOR. PT HAS NOT C/O PAIN FOR CLOTS OR BLOCKAGE THIS SHIFT. DR HAS STATED THAT DR ROUSSEAU IN [place] HAS ACCEPTED PT. WE ARE TRYING TO GET HIM BED TO TRANSFER TO [facility]. SHIFT COORDINATOR IS AWARE. H/H IMPROVED FROM 7.1 TO 8.0 THIS AM. BED IN LOW POSITION, CALL LITE IN REACH, CALLS APROP
[2022-11-03 04:58] LABS: Hemoglobin 6.9 g/dL (13.5-17.5)
[2022-11-03 05:30] LABS: Albumin, Blood 2.5 g/dL (3.4-5.0); Anion Gap 5 mmol/L (6-16); Blood Urea Nitrogen 41 mg/dL (8-24); Bun/Creatinine Ratio 18.8 (12.0-20.0); CO2, Blood 24 mmol/L (21-32); Calcium, Blood 8.3 mg/dL (8.5-10.1); Chloride, Blood 110 mmol/L (98-108); Creatinine, Blood 2.18 mg/dL (0.60-1.20); Glomerular Filtration Rate 28 (60-); Glucose, Blood 97 mg/dL (70-99); Phosphorus, Blood 3.4 mg/dL (2.5-4.9); Potassium, Blood 3.7 mmol/L (3.5-5.5); Sodium, Blood 139 mmol/L (136-145)
--- NOTE | 2022-11-03 05:54 | NUR ---
PATIENT RESTED WELL OVERNIGHT. URINE CONTINUES TO LOOK DARK MAROON ALTHOUGH IT HAS LIGHTENED UP SLIGHTLY, AND VISIBLY COULD NOT SEE CLOTS. PATIENT HAD NO COMPLAINTS OF PAIN OR DISCOMFORT. THIS MORNING, Hgb was 6.9 (7.1 yesterday) overnight hospitalist notified, and one unit of PRBC was ordered. Prabhjot continues to wait for transfer to [place]
[2022-11-03 14:02] LABS: Hematocrit 28.3 % (37.0-53.0); Hemoglobin 9.6 g/dL (13.5-17.5)
--- NOTE | 2022-11-03 14:10 | NUR ---
CALL PLACED TO [facility] TO SEE IF A BED WAS AVAILABLE. PER SPINDLE CARVER THERE IS STILL NO AVAILABLE BED AND NO WAIT LIST AT THIS TIME.
--- NOTE | 2022-11-03 16:57 | NUR ---
Last Palliative Care note placed by previous PC RN is on wrong Pt. Please disregard previous Palliative Care Note.
--- NOTE | 2022-11-03 19:33 | NUR ---
PT HAS BEEN QUITE PLEASANT TODAY. FAMILY AND FRIENDS IN TO VISIT TODAY. 1 UNIT PRBC GIVEN TODAY. H/H UP TO 9.6. RAMIREZ CONTINUES TO PRODUCE MAROON RED COLORED FLUID. NO BLADDER IRRIGATION TODAY. DR PRIDE. NOT MUCH CHANGE NOTED IN COLOR TODAY. PT STATES FEELS PRETTY GOOD. WE ARE STILL LOOKING TO TRANSFER TO [place] FOR CARE WITH DR ROUSSEAU. NO BED YET. NO OTHER CONCERNS NOTED. BED IN LOW POSITION, CALL LITE IN REACH, CALLS APPROP
[2022-11-04 04:49] LABS: BASOPHILS ABSOLUTE AUTO 0.04 K/mm3 (0.00-0.23); BASOPHILS PERCENT AUTO 1 % (0-2); EOSINOPHILS PERCENT AUTO 8 % (0-6); Hematocrit 24.5 % (37.0-53.0); Hemoglobin 8.1 g/dL (13.5-17.5); IMMATURE GRAN ABSOLUTE AUTO 0.02 K/mm3 (0.00-0.10); IMMATURE GRAN PERCENT AUTO 0 % (0-1); LYMPHOCYTES ABSOLUTE AUTO 1.68 K/mm3 (0.84-5.20); LYMPHOCYTES PERCENT AUTO 27 % (21-46); MONOCYTES ABSOLUTE AUTO 0.54 K/mm3 (0.16-1.47); MONOCYTES PERCENT AUTO 9 % (4-13); Mean Corpuscular HGB 31.9 pg (26.0-34.0); Mean Corpuscular HGB Conc 33.1 g/dL (31.5-36.5); Mean Corpuscular Volume 97 fL (80-100); Mean Platelet Volume 10.1 fL (9.1-12.4); NEUTROPHILS ABSOLUTE AUTO 3.43 K/mm3 (1.96-9.15); NEUTROPHILS PERCENT AUTO 55 % (41-73); Platelet Count 158 K/mm3 (150-400); RDW Coefficient Variation 19.1 % (11.7-14.2); RDW Standard Deviation 65.2 fL (35.1-46.3); Red Blood Cell Count 2.54 M/mm3 (4.30-5.90); White Blood Cell Count 6.21 K/mm3 (4.00-11.30)
[2022-11-04 05:09] LABS: Albumin, Blood 2.5 g/dL (3.4-5.0); Anion Gap 4 mmol/L (6-16); Blood Urea Nitrogen 40 mg/dL (8-24); Bun/Creatinine Ratio 20.1 (12.0-20.0); CO2, Blood 26 mmol/L (21-32); Calcium, Blood 8.5 mg/dL (8.5-10.1); Chloride, Blood 112 mmol/L (98-108); Creatinine, Blood 1.99 mg/dL (0.60-1.20); Glomerular Filtration Rate 32 (60-); Glucose, Blood 99 mg/dL (70-99); Phosphorus, Blood 3.4 mg/dL (2.5-4.9); Potassium, Blood 3.7 mmol/L (3.5-5.5); Sodium, Blood 142 mmol/L (136-145)
--- NOTE | 2022-11-04 15:53 | NUR ---
[facility] CALLED TODAY AT 0815 AND AGAIN AT 1550 AND THEY ARE NOT ACCEPTING PT AT THIS TIME FOR MEDICAL FLOOR STATUS. DR. POWELL NOTIFIED.
--- NOTE | 2022-11-04 19:34 | NUR ---
PT QUITE PLEASANT COOP A/O. STATES URINE COLOR LIGHTENING STEADILY. NO CLOTS NOTED. DR GAVE ORDERS TO HAVE RAMIREZ REMOVED THIS AM. FAMILY IN TO SEE TODAY. PT STATES FEELS PRETTY GOOD. NO NEW CONCERNS NOTED. BED IN LOW POSITION, CALL LITE IN REACH CALLSAPPOP
[2022-11-05 05:11] LABS: Hematocrit 24.6 % (37.0-53.0)
--- NOTE | 2022-11-05 05:12 | NUR ---
PATIENT RESTED WELL OVERNIGHT. NO COMPLAINTS OF PAIN OR DISCOMFORT. VOIDING CLEAR YELLOW URINE WITHOUT CLOTS OR SEDIMENT. HOPING FOR DISCHARGE TODAY
[2022-11-05 05:29] LABS: Albumin, Blood 2.6 g/dL (3.4-5.0); Anion Gap 4 mmol/L (6-16); Blood Urea Nitrogen 39 mg/dL (8-24); Bun/Creatinine Ratio 18.6 (12.0-20.0); CO2, Blood 25 mmol/L (21-32); Calcium, Blood 8.6 mg/dL (8.5-10.1); Chloride, Blood 111 mmol/L (98-108); Glomerular Filtration Rate 30 (60-); Glucose, Blood 100 mg/dL (70-99); Phosphorus, Blood 3.6 mg/dL (2.5-4.9); Potassium, Blood 3.8 mmol/L (3.5-5.5); Sodium, Blood 140 mmol/L (136-145)
--- NOTE | 2022-11-05 18:17 | NUR ---
PT DISCHARGED HOME. DISCHARGE INSTRUCTIONS AND EDUCATION GIVEN TO PT. PT VERBALIZED NO NEW QUESTIONS OR CONCERNS. IV DC'd AND PT TOLERATED WELL. ALL BELONGINGS GATHERED AND SENT HOME WITH PT. PT TAKEN BY WHEELCHAIR TO WAITING VEHICLE.
== END 2022-11-05 17:26 | disposition home or self-care (01) | DRG 687 ==
LOC: ER 11:11 → MEDS 18:33
PROVIDERS: Emergency Medicine; Internal Medicine; Physician Assistant; ADMIT Hospitalist
PROC: 30233N1 Transfusion of Nonautologous Red Blood Cells into Peripheral Vein, Percutaneous Approach (ICD-10-PCS; principal; 2022-10-31)
DX: C67.9 Malignant neoplasm of bladder, unspecified (principal); D62 Acute posthemorrhagic anemia; I13.0 Hypertensive heart and chronic kidney disease with heart failure and stage 1 through stage 4 chronic kidney disease, or unspecified chronic kidney disease; N13.30 Unspecified hydronephrosis; R31.0 Gross hematuria; N18.30 Chronic kidney disease, stage 3 unspecified; Z66 Do not resuscitate; I50.9 Heart failure, unspecified; D69.6 Thrombocytopenia, unspecified; D50.9 Iron deficiency anemia, unspecified; I35.0 Nonrheumatic aortic (valve) stenosis; E78.5 Hyperlipidemia, unspecified; Z98.52 Vasectomy status; Z90.49 Acquired absence of other specified parts of digestive tract; Z98.890 Other specified postprocedural states; Z98.49 Cataract extraction status, unspecified eye; Z87.891 Personal history of nicotine dependence; Z88.0 Allergy status to penicillin; Z96.0 Presence of urogenital implants; Z88.8 Allergy status to other drugs, medicaments and biological substances; Z79.899 Other long term (current) drug therapy; Z79.01 Long term (current) use of anticoagulants; Z79.82 Long term (current) use of aspirin; Z89.021 Acquired absence of right finger(s); Z86.16 Personal history of COVID-19
CPT/HCPCS: 36415; 36416; 36430; 51700; 51798; 74177; 80048; 80053; 80069; 81001; 85014; 85018; 85025; 85027; 86850; 86900; 86901; 86923; 99285-25; A9270; J7030; J7050; P9016; Q9967